=== PATIENT | male | born 1985 | race Caucasian/White ===

== ENCOUNTER 2022-01-18 08:35 | Outpatient (CLI) | payer BC | END 2022-01-18 08:36 | disposition home or self-care (01) | LOC: SLEEPLAB 08:35 | PROVIDERS: ATTEND Nurse Practitioner Family | DX: G47.33 Obstructive sleep apnea (adult) (pediatric) (principal); G47.9 Sleep disorder, unspecified; R53.83 Other fatigue; G31.84 Mild cognitive impairment of uncertain or unknown etiology; F41.9 Anxiety disorder, unspecified; R06.83 Snoring | CPT/HCPCS: 95800 ==